=== PATIENT | female | born 1945 | race Caucasian/White ===

== ENCOUNTER → 2020-01-25 | Outpatient (CLI) | payer MEDICARE ==
[~2020-01-25] MED LIST: ASPI-875 PO; CALC-656 PO; DCS100C PO; ESTR1TAB24 PO; FISH1CAP15 PO; GLUC1000 PO; HYDR-34 PO; LEVO250T33 PO; MULT-974 PO; OXYB10TA PO
--- NOTE | 2020-01-25 15:39 | Diagnostic Imaging Report ---
INDICATION: Kidney stone. TIME OF EXAM: 3:17 PM. FINDINGS: There appears to be a large staghorn type calculus located in the right renal pelvis measuring 26 mm x 23 mm. There is also a calcific density overlying the lower pole of the left kidney measuring approximately 8 to 9 mm in size, suspicious for a renal calculus. No definite calculus along the expected course of the ureters is seen. The bowel gas pattern is unremarkable. IMPRESSION: Findings suggestive of bilateral urinary tract calculi. CT may be useful for further evaluation if clinically warranted. Dictated by: Dictated on workstation # [id number]
== END ==
LOC: RAD 14:52
PROVIDERS: ATTEND Urology
DX: N20.0 Calculus of kidney (principal)
CPT/HCPCS: 74018